=== PATIENT | female | born 1995 | race Two or more races ===

== ENCOUNTER 2019-09-16 20:03 | Emergency (ER) | payer BC ==
[~2019-09-16] VITALS: Ht 162.6 cm; Wt 87.0 kg
[2019-09-16] MEDS ORDERED: IBUPROFEN 600MG TABLET PO ONE (21:00)
[2019-09-16 22:05] VITALS: BP 116/68
== END 2019-09-17 10:15 | disposition home or self-care (01) ==
LOC: ER 21:30
DX: R07.9 Chest pain, unspecified (principal)
CPT/HCPCS: 71045; 93005; 99283; Z7610